=== PATIENT | female | born 1995 | race Caucasian/White ===

== ENCOUNTER 2024-08-15 07:22 | Inpatient (IN) ==
[2024-08-15] MEDS ORDERED: OXYTOCIN 30 UNITS/NSS 30 UNITS/500 ML BAG IV PRN (07:45)
[2024-08-15 08:08] LABS: Hematocrit (blood only) 38.5 % (37.0-47.0); Hemoglobin 13.3 g/dl (12.0-16.0); Mean Corpuscular Hemoglobin 30.7 pg (25.0-34.0); Mean Corpuscular Hgb Conc 34.5 g/dL (32.0-36.0); Mean Corpuscular Volume 88.9 fL (80.0-100.0); Mean Platelet Volume 10.8 fL (9.4-12.4); Platelet Count 205 K/uL (130-400); RDW Coefficient of Variation 12.2 % (11.5-14.5); RDW Standard Deviation 40.1 fL (36.4-46.3); Red Blood Count 4.33 M/uL (4.20-5.40); White Blood Count 11.49 K/ul (4.8-10.8)
--- NOTE | 2024-08-15 08:08 | History & Physical Report ---
Date of Service August 15, 2024 Assessment & Plan (1) Supervision of normal first : Plan: Currently Cat 1 monitoring Anesthesiology consulted for epidural per pt discretion Gao bulb placed, Pitocin started Will monitor FHT, toco, and BPs Anticipate Admission and Anticipated Discharge Date Admission Date: August 15, 2024 History of Present Illness Primary Care Provider: Denise Wick Misti Iyer is a 28 y/o female currently at 40WGA with an NEGRITO 08/13/24 as determined by Ultrasound who is here for induction for post dates. Her has not been complicated. no contractions; hourly movement; no fluid loss; no bloody show External FHT and external uterine monitors used. Had regular appointments with OB. OB Labs: Blood Type A Positive 12/29/23 Antibody Screen NEGATIVE 12/29/23 Hgb 11.7 g/dl (12.0-16.0) L 05/20/24 Hct 35.0 % (37.0-47.0) L 05/20/24 MCV 91.8 fL (80.0-100.0) 12/29/23 Plt Count 268 K/uL (130-400) 12/29/23 Rubella IgG Antibody Immune (Immune) 12/29/23 RPR Nonreactive (Nonreactive) 12/29/23 Treponema pallidum Ab Negative (Negative) 05/20/24 Hep Bs Antigen NON-REACTIVE (NON-REACTIVE) 12/29/23 Hepatitis C Ab (EIA) NON-REACTIVE (NON-REACTIVE) 12/29/23 HIV (1&2) Ag & Ab Conf NON-REACTIVE (NON-REACTIVE) 12/29/23 Glucose 1 Hr 50 gm 119 mg/dl (70-130) 05/20/24 OB Optional Labs: Chlamydia trachomatis RNA Not Detected (NotDetected) 12/29/23 Neisseria gonorrhoeae RNA Not Detected (NotDetected) 12/29/23 Labs Reviewed: Declines genetics--mln gbs neg--akh Denies fever, chills, sweats Denies shortness of breath, difficulty breathing, chest pain, palpitations, chest pressure. Denies breast pain. Denies dysuria. Denies headache or changes in vision. Allergies Allergy/AdvReac Type Severity Reaction Status Date / Time No Known Allergies Allergy Verified 08/12/24 09:13 Home Medications Medication Instructions Recorded Confirmed Type PNV 153-FA 400 mcg-om3 35 mg-dha tab PO 12/22/23 08/12/24 History 25 mg-epa 5 mg-fish oil chew tablet ( Gummies) magnesium 250 mg PO DAILY 12/22/23 08/15/24 History breast pump #1 ea 07/22/24 08/12/24 Rx Patient History Medical History Varicella vaccination Surgical History S/P wisdom tooth extraction Family History Grandmother (Paternal) Breast cancer Father Diabetes Alcoholic Mother Osteoporosis Denies family history of Ovarian cancer Colorectal cancer Uterine cancer Social History (Updated 08/15/24 @ 07:48 by Leida Pond RN) Smoking Status: Never smoker Do You Dip or Chew Tobacco: No; Hx Alcohol Use: No Hx Substance Use: No Preferred Language: Maltese Communication Ability: Effective Stain Dipper Required: No Beliefs That Will Affect Care: None marital status: marital status details: Frank Luis (28) [phone] Current Living Situation: Spouse Current Living Situation Comment: Spouse, Dogs and Cats- changes litter current occupational status: employed current occupation: Elementary Counselor Other Information That Helps Us Care for You: No Feels Safe at Home: Yes Safety Concerns: Feels Safe At This Time Diet: regular Assistive Devices: None Review of Systems As per HPI Physical Exam Physical Exam: General: Alert, oriented. No acute distress. Cardiac: Regular rate and rhythm, no murmurs/rubs/gallops. Respiratory: Clear to auscultation bilaterally a/p, no wheezes/rales/rhonchi. No increased work of breathing. Symmetrical chest rise. No respiratory distress. Pelvic: Dilation 1 cm; Effacement 50%; Station -[address] Sarabia Lower Extremities: No lower extremity edema or swelling. No deep calf pain. Maritza's negative bilaterally Results & Data Vital Signs (Past 12 Hours) Vital Signs Pulse BP 08/15/24 07:43 95 H 123/92 Code Status & VTE Plan VTE Prophylaxis Plan VTE Prophylaxis will be ordered: No Monitoring External Monitor Marked variability, noted accels, no decels Tocodynamometer No regular contractions noted Supervising Physician Co-Signing Physician Notes Resident Physician Supervision Note: I interviewed and examined the patient. Discussed with Dr. Benson and agree with findings and plan as documented in the note. Any exceptions or clarifications are listed here: Reviewed cervical ripening options - agreeable to gao bulb with pitocin. Documented By: Gini Sarabia, DO
[2024-08-15] MEDS: Patient's HEIGHT &/or WEIGHT Needed SCH (08:45)
[2024-08-15] MEDS: SODIUM CHLORIDE 0.9% 1,000 ML IV SCH (09:45)
[2024-08-15] MEDS: OXYTOCIN 30 UNITS/NSS 30 UNITS/500 ML BAG IV PRN (09:46)
--- NOTE | 2024-08-15 16:47 | Labor Progress Brief Note ---
Date of Service August 15, 2024 Subjective FHT Cat 1 [place] Q 2 /-2 Wants to wait to AROM until is back. Assessment & Plan Admission and Anticipated Discharge Date Admission Date: August 15, 2024 Results & Data Vital Signs (Past 12 Hours) Vital Signs Temp Pulse Resp BP 08/15/24 16:02 99 H 137/78 08/15/24 14:58 36.8 C 90 20 122/74 08/15/24 14:19 104 H 135/78 08/15/24 13:41 101 H 133/72 08/15/24 13:16 102 H 130/78 08/15/24 11:52 98 H 130/78 08/15/24 11:18 36.5 C 85 18 120/75 08/15/24 09:51 76 18 135/88 08/15/24 07:49 36.5 C 95 H 20 123/92 08/15/24 07:43 95 H 123/92 Coding Level of Care Code None
--- NOTE | 2024-08-15 21:22 | Anesthesiology Consultation ---
Date of Service August 15, 2024 Assessment & Plan Chart Review Chart Review: Patient NOT seen in Pre Admission Testing and Acceptable Risk for Labor Epidural Consults Requested none ASA ASA2 Proposed Anesthesia Anesthesia Type: Labor Epidural Risk / Benefits Reviewed With: PT / POA / Parent / Guardian, Accepts Plan and Informed Consent Obtained History Height/Weight Height: 5 ft 2 in Weight: 82.41 kg Allergies Allergy/AdvReac Type Severity Reaction Status Date / Time No Known Allergies Allergy Verified 08/12/24 09:13 Medications Home Medications Medication Instructions Recorded Confirmed Last Taken PNV 153-FA 400 mcg-om3 35 mg-dha tab PO 12/22/23 08/12/24 08/13/24 25 mg-epa 5 mg-fish oil chew tablet ( Gummies) magnesium 250 mg PO DAILY 12/22/23 08/15/24 08/13/24 breast pump #1 ea 07/22/24 08/12/24 Unknown Active Medications Generic Name Dose Route Start Last Admin Trade Name Freq PRN Reason Stop Dose Admin Oxytocin 30 units in 500 mls @ 13 mls/hr 08/15/24 07:45 08/15/24 20:50 Pitocin 30 Units/Nss IV 08/17/24 07:44 0.78 units/hr .Q24H PRN 13 mls/hr Labor Induction/Augmentation Titration Protocol 0.78 UNITS/HR Sodium Chloride 1,000 mls @ 80 mls/hr 08/15/24 08:45 08/15/24 21:05 Nss IV 08/16/24 08:44 80 mls/hr .[id number] [place] Administration NPO Date Last Intake of Fluids: 08/15/24 Time Last Intake of Fluids: 21:00 Date Last Intake of Solids: 08/15/24 Time Last Intake of Solids: 06:00 Past Medical History Medical History Varicella vaccination Exercise / Class Metabolic Activity 1 > 8 Run/Swim/Ski/Tennis Past Family History Family History Grandmother (Paternal) Breast cancer Father Diabetes Alcoholic Mother Osteoporosis Denies family history of Ovarian cancer Colorectal cancer Uterine cancer Past Surgical History Surgical History S/P wisdom tooth extraction Past Anesthesia History No Hx of Anesthesia Complications and No Family Hx of Anesthesia Complications History of PONV No Hx of PONV and No Hx of Motion Sickness Social History Smoking Status: Never smoker Do You Dip or Chew Tobacco: No Hx Alcohol Use: No Hx Substance Use: No Review of Systems ROS Unobtainable: All systems reviewed & are unremarkable except as noted in HPI & below Physical Exam Vital Signs Last Vital Signs Temp 36.5 C 08/15/24 19:00 Pulse 86 08/15/24 20:22 Resp 18 08/15/24 19:00 BP 128/83 08/15/24 20:22 Testing Laboratory Results 08/15/24 07:51
[2024-08-15] MEDS: LIDOCAINE 2%/EPINEPHRINE 1:200,000 20 ML PF ONE (21:42)
[2024-08-15] MEDS: fentaNYL citrate PF 100 MCG/2 ML VIAL ONE (21:42)
[2024-08-15] MEDS: BUPIVACAINE 0.25% PF 30 ML VIAL ONE (21:42)
[2024-08-15] MEDS: fentANYL 2 MCG/ML BUPIVacaine 0.125%-NSS 100ML BAG ONE (21:44)
[2024-08-15] MEDS ORDERED: diphenhydrAMINE 50 MG/ML VIAL IV PRN (21:50)
[2024-08-15] MEDS ORDERED: BUPIVACAINE 0.25% PF 30 ML VIAL EPI PRN (21:50)
[2024-08-15] MEDS ORDERED: NALOXONE HCL 1 MG in SODIUM CHLORIDE 0.9% 1,000 ML IV PRN (21:50)
[2024-08-15] MEDS ORDERED: SODIUM CHLORIDE 0.9% PF INJ 10 ML VIAL EPI PRN (21:50)
[2024-08-15] MEDS ORDERED: ePHEDrine sulfate 50 MG/ML AMP IV PRN (21:50)
[2024-08-15] MEDS ORDERED: NALBUPHINE HCL INJ 10 MG/ML AMP IV PRN (21:50)
[2024-08-15] MEDS ORDERED: LIDOCAINE 2% MPF LOCAL 5 ML VIAL EPI PRN (21:50)
[2024-08-15] MEDS ORDERED: fentaNYL citrate PF 100 MCG/2 ML VIAL EPI PRN (21:50)
[2024-08-15] MEDS ORDERED: NALOXONE HCL 0.4 MG/1 ML VIAL/CARP IV PRN (21:50)
[2024-08-15] MEDS ORDERED: ROPIVACAINE 0.5% PF 5 MG/ML 20 ML VIAL EPI PRN (21:50)
[2024-08-15] MEDS: ePHEDrine sulfate 50 MG/ML AMP ONE (22:23)
[2024-08-16] MEDS: SODIUM CHLORIDE 0.9% PF INJ 10 ML VIAL ONE (00:53)
[2024-08-16] MEDS: fentANYL 2 MCG/ML BUPIVacaine 0.125%-NSS 100ML BAG EPI PRN (05:47)
--- NOTE | 2024-08-16 09:06 | Labor Progress Brief Note ---
Date of Service August 16, 2024 Subjective no pain, very comfortable and does not feel pressure Assessment & Plan (1) Normal labor: Plan will begin 2nd stage. fhts categ 1. Admission and Anticipated Discharge Date Admission Date: August 15, 2024 Physical Exam Constitutional: WD/WN, vitals as above Genitourinary: Manual OB Exam: + cervical dilation 10 cm, + cervical effacement 100% and + station + 2 OB Exam Monitor Tracing: + external FHT monitor used, + external uterine monitor used, + category I and + normal FHT variability Results & Data Vital Signs (Past 12 Hours) Vital Signs Temp Pulse Resp BP Pulse Ox 08/16/24 08:57 106 H 98 08/16/24 08:52 99 08/16/24 08:52 124 H 08/16/24 08:52 109 H 108/58 L 08/16/24 08:47 94 H 97 08/16/24 08:42 95 H 97 08/16/24 08:37 95 H 103/55 L 96 08/16/24 08:32 95 H 97 08/16/24 08:27 98 H 97 08/16/24 08:22 96 H 97 08/16/24 08:21 95 H 111/57 L 08/16/24 08:17 98 H 97 08/16/24 08:12 100 H 97 08/16/24 08:08 105 H 135/56 L 08/16/24 08:07 103 H 97 08/16/24 08:06 106 H 92 08/16/24 08:02 108 H 97 08/16/24 07:57 110 H 18 98 08/16/24 07:52 111 H 99 08/16/24 07:51 105 H 125/73 08/16/24 07:47 114 H 98 08/16/24 07:42 101 H 97 08/16/24 07:37 103 H 118/73 97 08/16/24 07:32 102 H 97 08/16/24 07:27 103 H 98 08/16/24 07:23 109 H 119/74 08/16/24 07:22 107 H 97 08/16/24 07:17 102 H 97 08/16/24 07:12 106 H 98 08/16/24 07:08 98.6 F 122 H 20 127/77 08/16/24 07:07 117 H 98 08/16/24 07:02 107 H 99 08/16/24 06:57 107 H 100 08/16/24 06:52 99 08/16/24 06:52 127 H 08/16/24 06:52 118 H 132/74 08/16/24 06:47 128 H 100 08/16/24 06:42 110 H 99 08/16/24 06:37 119 H 120/67 99 08/16/24 06:32 104 H 99 08/16/24 06:27 115 H 100 08/16/24 06:22 118 H 98 08/16/24 06:21 103 H 131/73 08/16/24 06:17 16 08/16/24 06:17 98.1 F 108 H 16 100 08/16/24 06:12 107 H 100 08/16/24 06:07 113 H 124/70 99 08/16/24 06:02 121 H 99 08/16/24 05:57 83 97 08/16/24 05:52 86 98 08/16/24 05:51 88 124/66 08/16/24 05:47 100 H 99 08/16/24 05:42 95 H 98 08/16/24 05:37 96 08/16/24 05:37 86 08/16/24 05:37 83 101/55 L 08/16/24 05:32 90 97 08/16/24 05:27 86 97 08/16/24 05:22 83 97 08/16/24 05:21 96 H 113/68 08/16/24 05:17 83 98 08/16/24 05:12 90 99 08/16/24 05:09 103 H 122/63 08/16/24 05:07 116 H 98 08/16/24 05:02 85 98 08/16/24 04:57 86 98 08/16/24 04:52 98.2 F 90 16 115/54 L 100 08/16/24 04:47 86 97 08/16/24 04:42 92 H 97 08/16/24 04:37 93 H 106/57 L 98 08/16/24 04:32 86 98 08/16/24 04:27 90 97 08/16/24 04:22 108 H 99 08/16/24 04:21 93 H 94/51 L 08/16/24 04:17 90 97 08/16/24 04:12 91 H 98 08/16/24 04:07 87 98 08/16/24 04:06 88 100/55 L 08/16/24 04:02 90 99 08/16/24 03:57 102 H 100 08/16/24 03:52 99 H 98 08/16/24 03:51 102 H 111/60 08/16/24 03:47 100 H 97 08/16/24 03:42 104 H 98 08/16/24 03:37 103 H 98 08/16/24 03:36 105 H 119/61 08/16/24 03:32 113 H 99 08/16/24 03:27 115 H 97 08/16/24 03:22 126 H 118/70 98 08/16/24 03:17 128 H 98 08/16/24 03:12 122 H 98 08/16/24 03:07 129 H 98 08/16/24 03:06 116 H 118/69 08/16/24 03:02 119 H 97 08/16/24 02:57 127 H 97 08/16/24 02:52 126 H 96 08/16/24 02:51 127 H 119/67 08/16/24 02:50 16 08/16/24 02:50 98.4 F 16 08/16/24 02:47 122 H 96 08/16/24 02:42 131 H 97 08/16/24 02:37 96 08/16/24 02:37 125 H 08/16/24 02:37 125 H 116/66 08/16/24 02:32 131 H 97 08/16/24 02:27 121 H 96 08/16/24 02:22 126 H 123/69 97 08/16/24 02:17 121 H 96 08/16/24 02:12 124 H 96 08/16/24 02:07 114 H 113/62 95 08/16/24 02:04 113 H 94 08/16/24 02:02 110 H 95 08/16/24 01:57 107 H 95 08/16/24 01:56 107 H 94 08/16/24 01:52 105 H 95 08/16/24 01:51 110 H 16 106/57 L 08/16/24 01:50 106 H 94 08/16/24 01:47 107 H 95 08/16/24 01:42 108 H 95 08/16/24 01:41 106 H 94 08/16/24 01:37 107 H 114/62 95 08/16/24 01:32 109 H 95 08/16/24 01:27 115 H 96 08/16/24 01:22 95 08/16/24 01:22 107 H 08/16/24 01:22 106 H 109/64 08/16/24 01:17 102 H 96 08/16/24 01:12 98 H 96 08/16/24 01:07 98 H 97 08/16/24 01:06 100 H 117/71 08/16/24 01:02 100 H 97 08/16/24 00:57 107 H 97 08/16/24 00:52 121 H 98 08/16/24 00:51 109 H 94 08/16/24 00:50 16 08/16/24 00:50 98.1 F 16 08/16/24 00:47 95 H 97 08/16/24 00:42 84 96 08/16/24 00:37 100 H 97 08/16/24 00:36 83 102/58 L 08/16/24 00:32 108 H 97 08/16/24 00:27 88 94 08/16/24 00:26 87 94 08/16/24 00:22 95 08/16/24 00:22 87 08/16/24 00:22 86 97/55 L 08/16/24 00:20 85 94 08/16/24 00:17 85 95 08/16/24 00:15 87 94 08/16/24 00:12 87 95 08/16/24 00:10 88 94 08/16/24 00:08 89 16 101/55 L 08/16/24 00:07 89 95 08/16/24 00:04 86 94 08/16/24 00:02 83 94 08/15/24 23:59 85 94 08/15/24 23:57 85 96 08/15/24 23:53 84 94 08/15/24 23:52 95 08/15/24 23:52 84 08/15/24 23:52 85 98/56 L 08/15/24 23:48 86 94 08/15/24 23:47 84 94 08/15/24 23:43 86 93 08/15/24 23:42 84 95 08/15/24 23:37 84 96 08/15/24 23:36 88 97/52 L 08/15/24 23:32 83 95 08/15/24 23:27 88 95 08/15/24 23:26 84 94 08/15/24 23:22 87 97 08/15/24 23:21 92 H 96/54 L 08/15/24 23:17 80 96 08/15/24 23:16 81 94 08/15/24 23:12 83 95 08/15/24 23:07 80 95 08/15/24 23:06 85 95/52 L 08/15/24 23:02 81 96 08/15/24 22:57 78 97 08/15/24 22:52 79 97 08/15/24 22:51 86 16 97/53 L 08/15/24 22:47 81 97 08/15/24 22:42 82 96 08/15/24 22:37 82 97 08/15/24 22:36 84 100/54 L 08/15/24 22:33 83 97/52 L 08/15/24 22:32 90 97 08/15/24 22:30 81 96/55 L 08/15/24 22:27 81 98/55 L 99 08/15/24 22:25 86 100/56 L 08/15/24 22:22 87 98 08/15/24 22:21 87 86/50 L 08/15/24 22:20 75 82/49 L 08/15/24 22:17 96 08/15/24 22:17 89 08/15/24 22:17 79 82/47 L 08/15/24 22:13 16 08/15/24 22:13 16 08/15/24 22:12 93 H 98 08/15/24 22:09 91 H 97/45 L 08/15/24 22:07 91 H 98 08/15/24 22:02 90 98 08/15/24 22:01 91 H 101/50 L 08/15/24 21:59 104 H 183/122 H 08/15/24 21:57 111 H 98 08/15/24 21:56 96 H 112/65 08/15/24 21:53 85 97/54 L 08/15/24 21:52 84 91/53 L 97 08/15/24 21:51 78 90/51 L 08/15/24 21:50 100 H 96/50 L 08/15/24 21:47 98 08/15/24 21:47 107 H 08/15/24 21:47 117 H 18 119/58 L 08/15/24 21:44 122 H 107/68 08/15/24 21:43 115 H 131/73 08/15/24 21:42 112 H 97 08/15/24 21:38 101 H 137/75 08/15/24 21:37 103 H 98 08/15/24 21:35 100 H 147/82 H 08/15/24 21:32 103 H 98 08/15/24 21:27 110 H 97 08/15/24 21:22 102 H 98 Coding Level of Care Code None Diagnoses Normal labor O80; Z37.9
--- NOTE | 2024-08-16 10:30 | Labor Progress Brief Note ---
Date of Service August 16, 2024 Subjective feeling exhausted. asked to evaluate by nurse Assessment & Plan (1) Normal labor: Plan at first pt requested assistance due to exhaustion. explained used of vacuum risk/benefit, risk of cephalohematoma. failure of attempted assistance. she now declines intervention and wants to cont to push on her own. she is pushing effectively and so encouraged to continue. fhts categ 1. Admission and Anticipated Discharge Date Admission Date: August 15, 2024 Physical Exam 2 Constitutional: WD/WN, vitals as above Genitourinary: Manual OB Exam: + cervical dilation 10 cm, + cervical effacemen t 100% and + station + 3 OB Exam Monitor Tracing: + external FHT monitor used, + external uterine monitor used (q3 pit at 20), + category I and + normal FHT variability pushing effectively. Results & Data Vital Signs (Past 12 Hours) Vital Signs Temp Pulse Resp BP Pulse Ox 08/16/24 10:23 120 H 128/71 08/16/24 10:22 123 H 97 08/16/24 10:17 153 H 98 08/16/24 10:13 101 H 94 08/16/24 10:12 113 H 97 08/16/24 10:08 101 H 94 08/16/24 10:07 95 08/16/24 10:07 100 H 08/16/24 10:07 103 H 116/55 L 08/16/24 10:02 110 H 96 08/16/24 09:57 130 H 97 08/16/24 09:52 106 H 117/71 96 08/16/24 09:47 109 H 96 08/16/24 09:42 115 H 97 08/16/24 09:37 128 H 97 08/16/24 09:36 109 H 128/66 08/16/24 09:32 104 H 96 08/16/24 09:27 121 H 98 08/16/24 09:22 127 H 81 L 08/16/24 09:21 99 H 123/60 08/16/24 09:17 144 H 99 08/16/24 09:12 110 H 96 08/16/24 09:07 125 H 99 08/16/24 09:06 118 H 137/69 08/16/24 09:02 97.9 F 117 H 20 99 08/16/24 08:57 106 H 98 08/16/24 08:52 99 08/16/24 08:52 124 H 08/16/24 08:52 109 H 108/58 L 08/16/24 08:47 94 H 97 08/16/24 08:42 95 H 97 08/16/24 08:37 95 H 103/55 L 96 08/16/24 08:32 95 H 97 08/16/24 08:27 98 H 97 08/16/24 08:22 96 H 97 08/16/24 08:21 95 H 111/57 L 08/16/24 08:17 98 H 97 08/16/24 08:12 100 H 97 08/16/24 08:08 105 H 135/56 L 08/16/24 08:07 103 H 97 08/16/24 08:06 106 H 92 08/16/24 08:02 108 H 97 08/16/24 07:57 110 H 18 98 08/16/24 07:52 111 H 99 08/16/24 07:51 105 H 125/73 08/16/24 07:47 114 H 98 08/16/24 07:42 101 H 97 08/16/24 07:37 103 H 118/73 97 08/16/24 07:32 102 H 97 08/16/24 07:27 103 H 98 08/16/24 07:23 109 H 119/74 08/16/24 07:22 107 H 97 08/16/24 07:17 102 H 97 08/16/24 07:12 106 H 98 08/16/24 07:08 98.6 F 122 H 20 127/77 08/16/24 07:07 117 H 98 08/16/24 07:02 107 H 99 08/16/24 06:57 107 H 100 08/16/24 06:52 99 08/16/24 06:52 127 H 08/16/24 06:52 118 H 132/74 08/16/24 06:47 128 H 100 08/16/24 06:42 110 H 99 08/16/24 06:37 119 H 120/67 99 08/16/24 06:32 104 H 99 08/16/24 06:27 115 H 100 08/16/24 06:22 118 H 98 08/16/24 06:21 103 H 131/73 08/16/24 06:17 16 08/16/24 06:17 98.1 F 108 H 16 100 08/16/24 06:12 107 H 100 08/16/24 06:07 113 H 124/70 99 08/16/24 06:02 121 H 99 08/16/24 05:57 83 97 08/16/24 05:52 86 98 08/16/24 05:51 88 124/66 08/16/24 05:47 100 H 99 08/16/24 05:42 95 H 98 08/16/24 05:37 96 08/16/24 05:37 86 08/16/24 05:37 83 101/55 L 08/16/24 05:32 90 97 08/16/24 05:27 86 97 08/16/24 05:22 83 97 08/16/24 05:21 96 H 113/68 08/16/24 05:17 83 98 08/16/24 05:12 90 99 08/16/24 05:09 103 H 122/63 08/16/24 05:07 116 H 98 08/16/24 05:02 85 98 08/16/24 04:57 86 98 08/16/24 04:52 98.2 F 90 16 115/54 L 100 08/16/24 04:47 86 97 08/16/24 04:42 92 H 97 08/16/24 04:37 93 H 106/57 L 98 08/16/24 04:32 86 98 08/16/24 04:27 90 97 08/16/24 04:22 108 H 99 08/16/24 04:21 93 H 94/51 L 08/16/24 04:17 90 97 08/16/24 04:12 91 H 98 08/16/24 04:07 87 98 08/16/24 04:06 88 100/55 L 08/16/24 04:02 90 99 08/16/24 03:57 102 H 100 08/16/24 03:52 99 H 98 08/16/24 03:51 102 H 111/60 08/16/24 03:47 100 H 97 08/16/24 03:42 104 H 98 08/16/24 03:37 103 H 98 08/16/24 03:36 105 H 119/61 08/16/24 03:32 113 H 99 08/16/24 03:27 115 H 97 08/16/24 03:22 126 H 118/70 98 08/16/24 03:17 128 H 98 08/16/24 03:12 122 H 98 08/16/24 03:07 129 H 98 08/16/24 03:06 116 H 118/69 08/16/24 03:02 119 H 97 08/16/24 02:57 127 H 97 08/16/24 02:52 126 H 96 08/16/24 02:51 127 H 119/67 08/16/24 02:50 16 08/16/24 02:50 98.4 F 16 08/16/24 02:47 122 H 96 08/16/24 02:42 131 H 97 08/16/24 02:37 96 08/16/24 02:37 125 H 08/16/24 02:37 125 H 116/66 08/16/24 02:32 131 H 97 08/16/24 02:27 121 H 96 08/16/24 02:22 126 H 123/69 97 08/16/24 02:17 121 H 96 08/16/24 02:12 124 H 96 08/16/24 02:07 114 H 113/62 95 08/16/24 02:04 113 H 94 08/16/24 02:02 110 H 95 08/16/24 01:57 107 H 95 08/16/24 01:56 107 H 94 08/16/24 01:52 105 H 95 08/16/24 01:51 110 H 16 106/57 L 08/16/24 01:50 106 H 94 08/16/24 01:47 107 H 95 08/16/24 01:42 108 H 95 08/16/24 01:41 106 H 94 08/16/24 01:37 107 H 114/62 95 08/16/24 01:32 109 H 95 08/16/24 01:27 115 H 96 08/16/24 01:22 95 08/16/24 01:22 107 H 08/16/24 01:22 106 H 109/64 08/16/24 01:17 102 H 96 08/16/24 01:12 98 H 96 08/16/24 01:07 98 H 97 08/16/24 01:06 100 H 117/71 08/16/24 01:02 100 H 97 08/16/24 00:57 107 H 97 08/16/24 00:52 121 H 98 08/16/24 00:51 109 H 94 08/16/24 00:50 16 08/16/24 00:50 98.1 F 16 08/16/24 00:47 95 H 97 08/16/24 00:42 84 96 08/16/24 00:37 100 H 97 08/16/24 00:36 83 102/58 L 08/16/24 00:32 108 H 97 08/16/24 00:27 88 94 08/16/24 00:26 87 94 08/16/24 00:22 95 08/16/24 00:22 87 08/16/24 00:22 86 97/55 L 08/16/24 00:20 85 94 08/16/24 00:17 85 95 08/16/24 00:15 87 94 08/16/24 00:12 87 95 08/16/24 00:10 88 94 08/16/24 00:08 89 16 101/55 L 08/16/24 00:07 89 95 08/16/24 00:04 86 94 08/16/24 00:02 83 94 08/15/24 23:59 85 94 08/15/24 23:57 85 96 08/15/24 23:53 84 94 08/15/24 23:52 95 08/15/24 23:52 84 08/15/24 23:52 85 98/56 L 08/15/24 23:48 86 94 08/15/24 23:47 84 94 08/15/24 23:43 86 93 08/15/24 23:42 84 95 08/15/24 23:37 84 96 08/15/24 23:36 88 97/52 L 08/15/24 23:32 83 95 08/15/24 23:27 88 95 08/15/24 23:26 84 94 08/15/24 23:22 87 97 08/15/24 23:21 92 H 96/54 L 08/15/24 23:17 80 96 08/15/24 23:16 81 94 08/15/24 23:12 83 95 08/15/24 23:07 80 95 08/15/24 23:06 85 95/52 L 08/15/24 23:02 81 96 08/15/24 22:57 78 97 08/15/24 22:52 79 97 08/15/24 22:51 86 16 97/53 L 08/15/24 22:47 81 97 08/15/24 22:42 82 96 08/15/24 22:37 82 97 08/15/24 22:36 84 100/54 L 08/15/24 22:33 83 97/52 L 08/15/24 22:32 90 97 08/15/24 22:30 81 96/55 L Coding Level of Care Code None Diagnoses Normal labor O80; Z37.9
--- NOTE | 2024-08-16 11:17 | Labor Progress Brief Note ---
Date of Service August 16, 2024 Subjective pushing effectively. Assessment & Plan (1) Normal labor: Plan as i am typing this. nurse lets me know pt exhausted and requesting assistance. fhts categ 1. Admission and Anticipated Discharge Date Admission Date: August 15, 2024 Physical Exam Constitutional: WD/WN, vitals as above Genitourinary: Manual OB Exam: + cervical dilation 10 cm, + cervical effacement 100% and + station + 3 OB Exam Monitor Tracing: + external FHT monitor used (+scalp stim response), + external uterine monitor used, + category I and + normal FHT variability Results & Data Vital Signs (Past 12 Hours) Vital Signs Temp Pulse Resp BP Pulse Ox 08/16/24 11:14 107 H 92 08/16/24 11:12 154 H 97 08/16/24 11:09 107 H 94 08/16/24 11:07 160 H 99 08/16/24 11:05 22 08/16/24 11:05 97.9 F 22 08/16/24 11:02 105 H 96 08/16/24 10:57 122 H 96 08/16/24 10:52 111 H 96 08/16/24 10:47 96 H 95 08/16/24 10:45 115 H 91 08/16/24 10:42 111 H 97 08/16/24 10:37 108 H 97 08/16/24 10:32 99 08/16/24 10:32 163 H 08/16/24 10:32 108 H 93 08/16/24 10:27 113 H 97 08/16/24 10:23 120 H 128/71 08/16/24 10:22 123 H 97 08/16/24 10:17 153 H 98 08/16/24 10:13 101 H 94 08/16/24 10:12 113 H 97 08/16/24 10:08 101 H 94 08/16/24 10:07 95 08/16/24 10:07 100 H 08/16/24 10:07 103 H 116/55 L 08/16/24 10:02 110 H 96 08/16/24 09:57 130 H 97 08/16/24 09:52 106 H 117/71 96 08/16/24 09:47 109 H 96 08/16/24 09:42 115 H 97 08/16/24 09:37 128 H 97 08/16/24 09:36 109 H 128/66 08/16/24 09:32 104 H 96 08/16/24 09:27 121 H 98 08/16/24 09:22 127 H 81 L 08/16/24 09:21 99 H 123/60 08/16/24 09:17 144 H 99 08/16/24 09:12 110 H 96 08/16/24 09:07 125 H 99 08/16/24 09:06 118 H 137/69 08/16/24 09:02 97.9 F 117 H 20 99 08/16/24 08:57 106 H 98 08/16/24 08:52 99 08/16/24 08:52 124 H 08/16/24 08:52 109 H 108/58 L 08/16/24 08:47 94 H 97 08/16/24 08:42 95 H 97 08/16/24 08:37 95 H 103/55 L 96 08/16/24 08:32 95 H 97 08/16/24 08:27 98 H 97 08/16/24 08:22 96 H 97 08/16/24 08:21 95 H 111/57 L 08/16/24 08:17 98 H 97 08/16/24 08:12 100 H 97 08/16/24 08:08 105 H 135/56 L 08/16/24 08:07 103 H 97 08/16/24 08:06 106 H 92 08/16/24 08:02 108 H 97 08/16/24 07:57 110 H 18 98 08/16/24 07:52 111 H 99 08/16/24 07:51 105 H 125/73 08/16/24 07:47 114 H 98 08/16/24 07:42 101 H 97 08/16/24 07:37 103 H 118/73 97 08/16/24 07:32 102 H 97 08/16/24 07:27 103 H 98 08/16/24 07:23 109 H 119/74 08/16/24 07:22 107 H 97 08/16/24 07:17 102 H 97 08/16/24 07:12 106 H 98 08/16/24 07:08 98.6 F 122 H 20 127/77 08/16/24 07:07 117 H 98 08/16/24 07:02 107 H 99 08/16/24 06:57 107 H 100 08/16/24 06:52 99 08/16/24 06:52 127 H 08/16/24 06:52 118 H 132/74 08/16/24 06:47 128 H 100 08/16/24 06:42 110 H 99 08/16/24 06:37 119 H 120/67 99 08/16/24 06:32 104 H 99 08/16/24 06:27 115 H 100 08/16/24 06:22 118 H 98 08/16/24 06:21 103 H 131/73 08/16/24 06:17 16 08/16/24 06:17 98.1 F 108 H 16 100 08/16/24 06:12 107 H 100 08/16/24 06:07 113 H 124/70 99 08/16/24 06:02 121 H 99 08/16/24 05:57 83 97 08/16/24 05:52 86 98 08/16/24 05:51 88 124/66 08/16/24 05:47 100 H 99 08/16/24 05:42 95 H 98 08/16/24 05:37 96 08/16/24 05:37 86 08/16/24 05:37 83 101/55 L 08/16/24 05:32 90 97 08/16/24 05:27 86 97 08/16/24 05:22 83 97 08/16/24 05:21 96 H 113/68 08/16/24 05:17 83 98 08/16/24 05:12 90 99 08/16/24 05:09 103 H 122/63 08/16/24 05:07 116 H 98 08/16/24 05:02 85 98 08/16/24 04:57 86 98 08/16/24 04:52 98.2 F 90 16 115/54 L 100 08/16/24 04:47 86 97 08/16/24 04:42 92 H 97 08/16/24 04:37 93 H 106/57 L 98 08/16/24 04:32 86 98 08/16/24 04:27 90 97 08/16/24 04:22 108 H 99 08/16/24 04:21 93 H 94/51 L 08/16/24 04:17 90 97 08/16/24 04:12 91 H 98 08/16/24 04:07 87 98 08/16/24 04:06 88 100/55 L 08/16/24 04:02 90 99 08/16/24 03:57 102 H 100 08/16/24 03:52 99 H 98 08/16/24 03:51 102 H 111/60 08/16/24 03:47 100 H 97 08/16/24 03:42 104 H 98 08/16/24 03:37 103 H 98 08/16/24 03:36 105 H 119/61 08/16/24 03:32 113 H 99 08/16/24 03:27 115 H 97 08/16/24 03:22 126 H 118/70 98 08/16/24 03:17 128 H 98 08/16/24 03:12 122 H 98 08/16/24 03:07 129 H 98 08/16/24 03:06 116 H 118/69 08/16/24 03:02 119 H 97 08/16/24 02:57 127 H 97 08/16/24 02:52 126 H 96 08/16/24 02:51 127 H 119/67 08/16/24 02:50 16 08/16/24 02:50 98.4 F 16 08/16/24 02:47 122 H 96 08/16/24 02:42 131 H 97 08/16/24 02:37 96 08/16/24 02:37 125 H 08/16/24 02:37 125 H 116/66 08/16/24 02:32 131 H 97 08/16/24 02:27 121 H 96 08/16/24 02:22 126 H 123/69 97 08/16/24 02:17 121 H 96 08/16/24 02:12 124 H 96 08/16/24 02:07 114 H 113/62 95 08/16/24 02:04 113 H 94 08/16/24 02:02 110 H 95 08/16/24 01:57 107 H 95 08/16/24 01:56 107 H 94 08/16/24 01:52 105 H 95 08/16/24 01:51 110 H 16 106/57 L 08/16/24 01:50 106 H 94 08/16/24 01:47 107 H 95 08/16/24 01:42 108 H 95 08/16/24 01:41 106 H 94 08/16/24 01:37 107 H 114/62 95 08/16/24 01:32 109 H 95 08/16/24 01:27 115 H 96 08/16/24 01:22 95 08/16/24 01:22 107 H 08/16/24 01:22 106 H 109/64 08/16/24 01:17 102 H 96 08/16/24 01:12 98 H 96 08/16/24 01:07 98 H 97 08/16/24 01:06 100 H 117/71 08/16/24 01:02 100 H 97 08/16/24 00:57 107 H 97 08/16/24 00:52 121 H 98 08/16/24 00:51 109 H 94 08/16/24 00:50 16 08/16/24 00:50 98.1 F 16 08/16/24 00:47 95 H 97 08/16/24 00:42 84 96 08/16/24 00:37 100 H 97 08/16/24 00:36 83 102/58 L 08/16/24 00:32 108 H 97 08/16/24 00:27 88 94 08/16/24 00:26 87 94 08/16/24 00:22 95 08/16/24 00:22 87 08/16/24 00:22 86 97/55 L 08/16/24 00:20 85 94 08/16/24 00:17 85 95 08/16/24 00:15 87 94 08/16/24 00:12 87 95 08/16/24 00:10 88 94 08/16/24 00:08 89 16 101/55 L 08/16/24 00:07 89 95 08/16/24 00:04 86 94 08/16/24 00:02 83 94 08/15/24 23:59 85 94 08/15/24 23:57 85 96 08/15/24 23:53 84 94 08/15/24 23:52 95 08/15/24 23:52 84 08/15/24 23:52 85 98/56 L 08/15/24 23:48 86 94 08/15/24 23:47 84 94 08/15/24 23:43 86 93 08/15/24 23:42 84 95 08/15/24 23:37 84 96 08/15/24 23:36 88 97/52 L 08/15/24 23:32 83 95 08/15/24 23:27 88 95 08/15/24 23:26 84 94 08/15/24 23:22 87 97 08/15/24 23:21 92 H 96/54 L 08/15/24 23:17 80 96 Coding Level of Care Code None Diagnoses Normal labor O80; Z37.9
[2024-08-16] MEDS: LIDOCAINE 1% LOCAL 20 ML VIAL INFIL PRN (11:39)
[2024-08-16] MEDS ORDERED: HYDROCORTISONE ACETATE 25 MG SUPP PR PRN (11:58)
[2024-08-16] MEDS ORDERED: OXYTOCIN 30 UNITS/NSS 30 UNITS/500 ML BAG IV PRN (11:58)
[2024-08-16] MEDS ORDERED: DIPHTHER/TETAN/PERTUS Vaccine (Tdap, Adol/Adult) 0.5mL IM ONE (11:58)
[2024-08-16] MEDS ORDERED: bisacodyL 10 MG SUPP PR PRN (11:58)
[2024-08-16] MEDS: LIDOCAINE 2%/EPINEPHRINE 1:200,000 20 ML PF EPI STA (12:37)
[2024-08-16] MEDS: fentaNYL citrate PF 100 MCG/2 ML VIAL EPI STA (12:37)
[2024-08-16] MEDS: BUPIVACAINE 0.25% PF 30 ML VIAL EPI STA (12:37)
[2024-08-16] MEDS: SODIUM CHLORIDE 0.9% PF INJ 10 ML VIAL EPI STA (12:38)
[2024-08-16] MEDS: ceFAZolin 2000MG 2,000 MG/15 ML SYR IV SCH (12:45)
--- NOTE | 2024-08-16 12:55 | Delivery Summary ---
Vaginal Delivery Summary Date of Service August 16, 2024 Vaginal Delivery Summary and 3rd Degree LAC (partial) The patient was pushing >2hrs and asked for assistance due to maternal exhaustion. Had previously been counseled re: vacuum assistance and now wanted to proceed. Bladder drained under sterile conditions for 150cc. The vacuum was applied and over 3 pulls with 2 popoffs cephalic to +4 station. Then midline episiotomy performed after informed consent and pt pushed to deliver a viable male Apgars 8 and 9 via VAVD over partial 3rd degree perineal laceration extended from midline episiotomy. Mouth and nose bulb suctioned at perineum. Shoulders and body delivered with ease. was vigorous and crying at . Cord clamped at 30 seconds of life and infant to maternal abdomen where the cord was then doubly clamped and cut. Placenta not delivered spontaneously and at 15min postdelivery due to hemorrhage, manual extraction of placenta took place. Uterus swept for no retained products. Laceration repaired in layers in routine fashion with 2-0 and 3-0 vicryl. Hemostasis achieved with dilute pitocin and uterine massage and rectal cytotec 1000mcg. Cervix and sulci intact. QBL 1171 cc. Mother and baby stable in recovery. Couple made aware of circumstances after to include pph, iv abx planned due to manual extraction and sweeping of uterus. They deny questions. [facility] Vaginal Delivery Charge Delivery Type Details: and 3rd Degree LAC (partial)
[2024-08-16] MEDS ORDERED: SODIUM CHLORIDE 0.9% 50 ML IV PRN (13:18)
[2024-08-16] MEDS ORDERED: SODIUM CHLORIDE 0.9% 100 ML IV PRN (13:18)
[2024-08-16] MEDS ORDERED: MIDAZOLAM HCL 1 MG/ML 2ML VIAL ONE (13:25)
[2024-08-16] MEDS ORDERED: fentaNYL citrate PF 100 MCG/2 ML VIAL ONE (13:25)
[2024-08-16] MEDS ORDERED: PROPOFOL IV EMULSION 10 MG/ML 20 ML VIAL IV ONE (13:26)
[2024-08-16] MEDS ORDERED: LIDOCAINE 2% 2 ML VIAL/AMP(20MG/ML) INFIL ONE (13:26)
[2024-08-16] MEDS ORDERED: ONDANSETRON INJ 2 MG/ML 2 ML VIAL ONE (13:26)
[2024-08-16] MEDS ORDERED: DEXAMETHASONE SOD INJ 4 MG/ML VIAL ONE (13:26)
[2024-08-16] MEDS ORDERED: SUCCINYLCHOLINE CHLORIDE 20 MG/ML 10 ML VIAL IV ONE (13:26)
--- NOTE | 2024-08-16 13:27 | Anesthesiology Consultation ---
Date of Service August 16, 2024 Assessment & Plan Chart Review Chart Review: Acceptable Risk for Surgery Consults Requested none History Height/Weight Height: 5 ft 2 in Weight: 82.41 kg Allergies Allergy/AdvReac Type Severity Reaction Status Date / Time No Known Allergies Allergy Verified 08/12/24 09:13 Medications Home Medications Medication Instructions Recorded Confirmed Last Taken PNV 153-FA 400 mcg-om3 35 mg-dha tab PO 12/22/23 08/12/24 08/13/24 25 mg-epa 5 mg-fish oil chew tablet ( Gummies) magnesium 250 mg PO DAILY 12/22/23 08/15/24 08/13/24 breast pump #1 ea 07/22/24 08/12/24 Unknown Active Medications Generic Name Dose Route Start Last Admin Trade Name Freq PRN Reason Stop Dose Admin Cefazolin Sodium 2,000 mg in 15 mls @ 3.75 mls/min 08/16/24 12:00 08/16/24 12:45 Ancef 2000mg IV 08/18/24 11:59 3.75 mls/min Q8H [place] Administration Lidocaine HCl 20 ml 08/15/24 07:45 08/16/24 11:39 Lidocaine 1% Local 20 Ml Vial INFIL 09/14/24 07:44 1 ml ONCE PRN Administration Perineal/vaginal Repair NPO Date Last Intake of Fluids: 08/15/24 Time Last Intake of Fluids: 21:00 Date Last Intake of Solids: 08/15/24 Time Last Intake of Solids: 06:00 Past Medical History Medical History Varicella vaccination Past Family History Family History Grandmother (Paternal) Breast cancer Father Diabetes Alcoholic Mother Osteoporosis Denies family history of Ovarian cancer Colorectal cancer Uterine cancer Past Surgical History Surgical History S/P wisdom tooth extraction Social History Smoking Status: Never smoker Do You Dip or Chew Tobacco: No Hx Alcohol Use: No Hx Substance Use: No Physical Exam Vital Signs Last Vital Signs Temp 36.6 C 08/16/24 11:05 Pulse 142 H 08/16/24 13:24 Resp 22 08/16/24 11:05 BP 143/75 H 08/16/24 13:24 Pulse Ox 98 08/16/24 11:52 Testing Laboratory Results 08/15/24 07:51
--- NOTE | 2024-08-16 13:31 | Obstetrical Progress Note ---
Date of Service August 16, 2024 Assessment & Plan (1) hemorrhage: Plan will now plan emergency d&c. plan eua and curettage and likely further med and device mgmt. pt aware of risk for surgery and hyster. consent reviewed and signed. now about at least 2000cc blood loss from this event and at delivery combined. Admission and Anticipated Discharge Date Admission Date: August 15, 2024 Subjective ctsp due to large gush of blood and clots. nursing states uterus deviated to right and about at umbilicus. pt just was . Physical Exam Constitutional: WD/WN, vitals as above Genitourinary: bedside exam with uterus deviated to right and 1 above umbilical. whole hand into uterine cavity with removal of many clots. measures >950cc. uterus swept x 2 and on 2nd attempt, small piece of adherent placenta removed. uterus not as boggy but concern for need for better exploration. massive transfusion protocol called. stat h/h. type and cross 2 u prbc. Results & Data Vital Signs (Past 12 Hours) Vital Signs Temp Pulse Resp BP Pulse Ox 08/16/24 13:24 142 H 143/75 H 08/16/24 13:21 111 H 148/77 H 08/16/24 13:04 129 H 123/70 08/16/24 12:49 120 H 129/71 08/16/24 12:19 103 H 113/61 08/16/24 12:03 130 H 98/62 L 08/16/24 12:01 121 H 100/55 L 08/16/24 11:59 110 H 96/55 L 08/16/24 11:57 118 H 99/54 L 08/16/24 11:55 113 H 95/59 L 08/16/24 11:53 106 H 95/54 L 08/16/24 11:52 106 H 98 08/16/24 11:51 102 H 89/44 L 08/16/24 11:49 106 H 117/57 L 08/16/24 11:47 117 H 138/57 L 96 08/16/24 11:42 111 H 97 08/16/24 11:37 126 H 96 08/16/24 11:32 115 H 95 08/16/24 11:27 100 H 99 08/16/24 11:26 111 H 91 08/16/24 11:22 124 H 99 08/16/24 11:17 112 H 97 08/16/24 11:14 107 H 92 08/16/24 11:12 154 H 97 08/16/24 11:09 107 H 94 08/16/24 11:07 160 H 99 08/16/24 11:05 22 08/16/24 11:05 97.9 F 22 08/16/24 11:02 105 H 96 08/16/24 10:57 122 H 96 08/16/24 10:52 111 H 96 08/16/24 10:47 96 H 95 08/16/24 10:45 115 H 91 08/16/24 10:42 111 H 97 08/16/24 10:37 108 H 97 08/16/24 10:32 99 08/16/24 10:32 163 H 08/16/24 10:32 108 H 93 08/16/24 10:27 113 H 97 08/16/24 10:23 120 H 128/71 08/16/24 10:22 123 H 97 08/16/24 10:17 153 H 98 08/16/24 10:13 101 H 94 08/16/24 10:12 113 H 97 08/16/24 10:08 101 H 94 08/16/24 10:07 95 08/16/24 10:07 100 H 08/16/24 10:07 103 H 116/55 L 08/16/24 10:02 110 H 96 08/16/24 09:57 130 H 97 08/16/24 09:52 106 H 117/71 96 08/16/24 09:47 109 H 96 08/16/24 09:42 115 H 97 08/16/24 09:37 128 H 97 08/16/24 09:36 109 H 128/66 08/16/24 09:32 104 H 96 08/16/24 09:27 121 H 98 08/16/24 09:22 127 H 81 L 08/16/24 09:21 99 H 123/60 08/16/24 09:17 144 H 99 08/16/24 09:12 110 H 96 08/16/24 09:07 125 H 99 08/16/24 09:06 118 H 137/69 08/16/24 09:02 97.9 F 117 H 20 99 08/16/24 08:57 106 H 98 08/16/24 08:52 99 08/16/24 08:52 124 H 08/16/24 08:52 109 H 108/58 L 08/16/24 08:47 94 H 97 08/16/24 08:42 95 H 97 08/16/24 08:37 95 H 103/55 L 96 08/16/24 08:32 95 H 97 08/16/24 08:27 98 H 97 08/16/24 08:22 96 H 97 08/16/24 08:21 95 H 111/57 L 08/16/24 08:17 98 H 97 08/16/24 08:12 100 H 97 08/16/24 08:08 105 H 135/56 L 08/16/24 08:07 103 H 97 08/16/24 08:06 106 H 92 08/16/24 08:02 108 H 97 08/16/24 07:57 110 H 18 98 08/16/24 07:52 111 H 99 08/16/24 07:51 105 H 125/73 08/16/24 07:47 114 H 98 08/16/24 07:42 101 H 97 08/16/24 07:37 103 H 118/73 97 08/16/24 07:32 102 H 97 08/16/24 07:27 103 H 98 08/16/24 07:23 109 H 119/74 08/16/24 07:22 107 H 97 08/16/24 07:17 102 H 97 08/16/24 07:12 106 H 98 08/16/24 07:08 98.6 F 122 H 20 127/77 08/16/24 07:07 117 H 98 08/16/24 07:02 107 H 99 08/16/24 06:57 107 H 100 08/16/24 06:52 99 08/16/24 06:52 127 H 08/16/24 06:52 118 H 132/74 08/16/24 06:47 128 H 100 08/16/24 06:42 110 H 99 08/16/24 06:37 119 H 120/67 99 08/16/24 06:32 104 H 99 08/16/24 06:27 115 H 100 08/16/24 06:22 118 H 98 08/16/24 06:21 103 H 131/73 08/16/24 06:17 16 08/16/24 06:17 98.1 F 108 H 16 100 08/16/24 06:12 107 H 100 08/16/24 06:07 113 H 124/70 99 08/16/24 06:02 121 H 99 08/16/24 05:57 83 97 08/16/24 05:52 86 98 08/16/24 05:51 88 124/66 08/16/24 05:47 100 H 99 08/16/24 05:42 95 H 98 08/16/24 05:37 96 08/16/24 05:37 86 08/16/24 05:37 83 101/55 L 08/16/24 05:32 90 97 08/16/24 05:27 86 97 08/16/24 05:22 83 97 08/16/24 05:21 96 H 113/68 08/16/24 05:17 83 98 08/16/24 05:12 90 99 08/16/24 05:09 103 H 122/63 08/16/24 05:07 116 H 98 08/16/24 05:02 85 98 08/16/24 04:57 86 98 08/16/24 04:52 98.2 F 90 16 115/54 L 100 08/16/24 04:47 86 97 08/16/24 04:42 92 H 97 08/16/24 04:37 93 H 106/57 L 98 08/16/24 04:32 86 98 08/16/24 04:27 90 97 08/16/24 04:22 108 H 99 08/16/24 04:21 93 H 94/51 L 08/16/24 04:17 90 97 08/16/24 04:12 91 H 98 08/16/24 04:07 87 98 08/16/24 04:06 88 100/55 L 08/16/24 04:02 90 99 08/16/24 03:57 102 H 100 08/16/24 03:52 99 H 98 08/16/24 03:51 102 H 111/60 08/16/24 03:47 100 H 97 08/16/24 03:42 104 H 98 08/16/24 03:37 103 H 98 08/16/24 03:36 105 H 119/61 08/16/24 03:32 113 H 99 08/16/24 03:27 115 H 97 08/16/24 03:22 126 H 118/70 98 08/16/24 03:17 128 H 98 08/16/24 03:12 122 H 98 08/16/24 03:07 129 H 98 08/16/24 03:06 116 H 118/69 08/16/24 03:02 119 H 97 08/16/24 02:57 127 H 97 08/16/24 02:52 126 H 96 08/16/24 02:51 127 H 119/67 08/16/24 02:50 16 08/16/24 02:50 98.4 F 16 08/16/24 02:47 122 H 96 08/16/24 02:42 131 H 97 08/16/24 02:37 96 08/16/24 02:37 125 H 08/16/24 02:37 125 H 116/66 08/16/24 02:32 131 H 97 08/16/24 02:27 121 H 96 08/16/24 02:22 126 H 123/69 97 08/16/24 02:17 121 H 96 08/16/24 02:12 124 H 96 08/16/24 02:07 114 H 113/62 95 08/16/24 02:04 113 H 94 08/16/24 02:02 110 H 95 08/16/24 01:57 107 H 95 08/16/24 01:56 107 H 94 08/16/24 01:52 105 H 95 08/16/24 01:51 110 H 16 106/57 L 08/16/24 01:50 106 H 94 08/16/24 01:47 107 H 95 08/16/24 01:42 108 H 95 08/16/24 01:41 106 H 94 08/16/24 01:37 107 H 114/62 95 08/16/24 01:32 109 H 95 08/16/24 01:27 115 H 96 PG Care Time/CCT Total # of Minutes Spent Total Time Spent with Patient: Total time spent is greater than 50% in coordination of care (as documented) at patient's floor/unit and/or counseling patient: Coding Level of Care Code None Diagnoses hemorrhage O72.1
--- NOTE | 2024-08-16 14:13 | Operative Report ---
PG Post Operative Report Pre & Post Diagnosis Operation Date: 08/16/24 09:00 Pre-Op Diagnosis: Post hemmorrhage, retained placenta Post-Op Diagnosis: Post hemmorrhage, retained placenta I identified the patient and participated in the time-out.: Yes Procedure Operation Date: 08/16/24 09:00 Actual Procedures p Exam under anesthesia. curettage of uterus. exploration of uterus. placement of TANVIR device. Vale Lambert MD, FACOG Surgeon Vale Lambert MD, FACOG Cinder Man none Estimated Blood Loss 100 (90 on chux, 10 for case.) Findings Consistent with Post-Op Diagnosis (from transfer from to OR about 90cc blood on chux, with eua, few clots removed, no evidence of retained products curettage resulted in minimal tissue. TANVIR placed and balloon filled with 110cc of saline) Fluids 900cc NS Specimens none Drains tanvir gao Anesthesia Type General Complications none Disposition Accompanied Patient To Recovery: No Disposition: Recovery Room Indications 28yo with pph, retained tissue removed at bedside and recommended eua and further management of bleeding and pt agrees. Description of Procedure Patient taken to OR and when adequate general anesthesia was obtained, placed in dorsal lithotomy position. Betadine prep. EUA performed with findings as noted above. No tissue removed with manual or banjo curettage. TANVIR placed in routine fashion and on suction with minimal return. Balloon inflated 110cc and rechecked x 1 with no evidence of abnormal egress of bleeding. Fundus at umbilicus. Re approximated tissue at introitus with 3-0 vicryl. Watched for >10min with no evidence of worsening bleeding. 1u PRBC planned. Patient awoken from anesthesia to transfer to recovery room. Sponge, needle and lap counts correct x 2. I attest to the content of the Intraoperative Record and any orders documented therein. Any exceptions are noted below. OB Procedure Charges 32618 PP Curettage (TANVIR placement)
[2024-08-16] MEDS ORDERED: OXYTOCIN 20 UNITS/LR 1,002 ML IV SCH (14:45)
--- NOTE | 2024-08-16 14:53 | Anesthesiology Progress Note ---
Date of Service August 16, 2024 Anesthesia Post Procedure Vital Signs Vital Signs: Temp Pulse Pulse Resp BP BP Pulse Ox 08/16/24 14:47 36.9 C 101 H 13 125/74 96 08/16/24 14:40 109 H 15 114/83 95 08/16/24 14:35 108 H 20 121/76 98 08/16/24 14:25 116 H 16 128/83 100 08/16/24 14:19 37.7 C H 126 H 16 127/78 100 08/16/24 13:24 142 H 143/75 H 08/16/24 13:21 111 H 148/77 H 08/16/24 13:04 129 H 123/70 08/16/24 12:49 120 H 129/71 08/16/24 12:19 103 H 113/61 08/16/24 12:03 130 H 98/62 L 08/16/24 12:01 121 H 100/55 L 08/16/24 11:59 110 H 96/55 L 08/16/24 11:57 118 H 99/54 L 08/16/24 11:55 113 H 95/59 L 08/16/24 11:53 106 H 95/54 L 08/16/24 11:52 106 H 98 08/16/24 11:51 102 H 89/44 L 08/16/24 11:49 106 H 117/57 L 08/16/24 11:47 117 H 138/57 L 96 08/16/24 11:42 111 H 97 08/16/24 11:37 126 H 96 08/16/24 11:32 115 H 95 08/16/24 11:27 100 H 99 08/16/24 11:26 111 H 91 08/16/24 11:22 124 H 99 08/16/24 11:17 112 H 97 08/16/24 11:14 107 H 92 08/16/24 11:12 154 H 97 08/16/24 11:09 107 H 94 08/16/24 11:07 160 H 99 08/16/24 11:05 22 08/16/24 11:05 36.6 C 22 08/16/24 11:02 105 H 96 08/16/24 10:57 122 H 96 08/16/24 10:52 111 H 96 08/16/24 10:47 96 H 95 08/16/24 10:45 115 H 91 08/16/24 10:42 111 H 97 08/16/24 10:37 108 H 97 08/16/24 10:32 99 08/16/24 10:32 163 H 08/16/24 10:32 108 H 93 08/16/24 10:27 113 H 97 08/16/24 10:23 120 H 128/71 08/16/24 10:22 123 H 97 08/16/24 10:17 153 H 98 08/16/24 10:13 101 H 94 08/16/24 10:12 113 H 97 08/16/24 10:08 101 H 94 08/16/24 10:07 95 08/16/24 10:07 100 H 08/16/24 10:07 103 H 116/55 L 08/16/24 10:02 110 H 96 08/16/24 09:57 130 H 97 08/16/24 09:52 106 H 117/71 96 08/16/24 09:47 109 H 96 08/16/24 09:42 115 H 97 08/16/24 09:37 128 H 97 08/16/24 09:36 109 H 128/66 08/16/24 09:32 104 H 96 08/16/24 09:27 121 H 98 08/16/24 09:22 127 H 81 L 08/16/24 09:21 99 H 123/60 08/16/24 09:17 144 H 99 08/16/24 09:12 110 H 96 08/16/24 09:07 125 H 99 08/16/24 09:06 118 H 137/69 08/16/24 09:02 36.6 C 117 H 20 99 08/16/24 08:57 106 H 98 08/16/24 08:52 99 08/16/24 08:52 124 H 08/16/24 08:52 109 H 108/58 L 08/16/24 08:47 94 H 97 08/16/24 08:42 95 H 97 08/16/24 08:37 95 H 103/55 L 96 08/16/24 08:32 95 H 97 08/16/24 08:27 98 H 97 08/16/24 08:22 96 H 97 08/16/24 08:21 95 H 111/57 L 08/16/24 08:17 98 H 97 08/16/24 08:12 100 H 97 08/16/24 08:08 105 H 135/56 L 08/16/24 08:07 103 H 97 08/16/24 08:06 106 H 92 08/16/24 08:02 108 H 97 08/16/24 07:57 110 H 18 98 08/16/24 07:52 111 H 99 08/16/24 07:51 105 H 125/73 08/16/24 07:47 114 H 98 08/16/24 07:42 101 H 97 08/16/24 07:37 103 H 118/73 97 08/16/24 07:32 102 H 97 08/16/24 07:27 103 H 98 08/16/24 07:23 109 H 119/74 08/16/24 07:22 107 H 97 08/16/24 07:17 102 H 97 08/16/24 07:12 106 H 98 08/16/24 07:08 37.0 C 122 H 20 127/77 08/16/24 07:07 117 H 98 08/16/24 07:02 107 H 99 08/16/24 06:57 107 H 100 08/16/24 06:52 99 08/16/24 06:52 127 H 08/16/24 06:52 118 H 132/74 08/16/24 06:47 128 H 100 08/16/24 06:42 110 H 99 08/16/24 06:37 119 H 120/67 99 08/16/24 06:32 104 H 99 08/16/24 06:27 115 H 100 08/16/24 06:22 118 H 98 08/16/24 06:21 103 H 131/73 08/16/24 06:17 16 08/16/24 06:17 36.7 C 108 H 16 100 08/16/24 06:12 107 H 100 08/16/24 06:07 113 H 124/70 99 08/16/24 06:02 121 H 99 08/16/24 05:57 83 97 08/16/24 05:52 86 98 08/16/24 05:51 88 124/66 08/16/24 05:47 100 H 99 08/16/24 05:42 95 H 98 08/16/24 05:37 96 08/16/24 05:37 86 08/16/24 05:37 83 101/55 L 08/16/24 05:32 90 97 08/16/24 05:27 86 97 08/16/24 05:22 83 97 08/16/24 05:21 96 H 113/68 08/16/24 05:17 83 98 08/16/24 05:12 90 99 08/16/24 05:09 103 H 122/63 08/16/24 05:07 116 H 98 08/16/24 05:02 85 98 08/16/24 04:57 86 98 08/16/24 04:52 36.8 C 90 16 115/54 L 100 08/16/24 04:47 86 97 08/16/24 04:42 92 H 97 08/16/24 04:37 93 H 106/57 L 98 08/16/24 04:32 86 98 08/16/24 04:27 90 97 08/16/24 04:22 108 H 99 08/16/24 04:21 93 H 94/51 L 08/16/24 04:17 90 97 08/16/24 04:12 91 H 98 08/16/24 04:07 87 98 08/16/24 04:06 88 100/55 L 08/16/24 04:02 90 99 08/16/24 03:57 102 H 100 08/16/24 03:52 99 H 98 08/16/24 03:51 102 H 111/60 08/16/24 03:47 100 H 97 08/16/24 03:42 104 H 98 08/16/24 03:37 103 H 98 08/16/24 03:36 105 H 119/61 08/16/24 03:32 113 H 99 08/16/24 03:27 115 H 97 08/16/24 03:22 126 H 118/70 98 08/16/24 03:17 128 H 98 08/16/24 03:12 122 H 98 08/16/24 03:07 129 H 98 08/16/24 03:06 116 H 118/69 08/16/24 03:02 119 H 97 08/16/24 02:57 127 H 97 08/16/24 02:52 126 H 96 08/16/24 02:51 127 H 119/67 08/16/24 02:50 16 08/16/24 02:50 36.9 C 16 08/16/24 02:47 122 H 96 08/16/24 02:42 131 H 97 08/16/24 02:37 96 08/16/24 02:37 125 H 08/16/24 02:37 125 H 116/66 08/16/24 02:32 131 H 97 08/16/24 02:27 121 H 96 08/16/24 02:22 126 H 123/69 97 08/16/24 02:17 121 H 96 08/16/24 02:12 124 H 96 08/16/24 02:07 114 H 113/62 95 08/16/24 02:04 113 H 94 08/16/24 02:02 110 H 95 08/16/24 01:57 107 H 95 08/16/24 01:56 107 H 94 08/16/24 01:52 105 H 95 08/16/24 01:51 110 H 16 106/57 L 08/16/24 01:50 106 H 94 08/16/24 01:47 107 H 95 08/16/24 01:42 108 H 95 08/16/24 01:41 106 H 94 08/16/24 01:37 107 H 114/62 95 08/16/24 01:32 109 H 95 08/16/24 01:27 115 H 96 08/16/24 01:22 95 08/16/24 01:22 107 H 08/16/24 01:22 106 H 109/64 08/16/24 01:17 102 H 96 08/16/24 01:12 98 H 96 08/16/24 01:07 98 H 97 08/16/24 01:06 100 H 117/71 08/16/24 01:02 100 H 97 08/16/24 00:57 107 H 97 08/16/24 00:52 121 H 98 08/16/24 00:51 109 H 94 08/16/24 00:50 16 08/16/24 00:50 36.7 C 16 08/16/24 00:47 95 H 97 08/16/24 00:42 84 96 08/16/24 00:37 100 H 97 08/16/24 00:36 83 102/58 L 08/16/24 00:32 108 H 97 08/16/24 00:27 88 94 08/16/24 00:26 87 94 08/16/24 00:22 95 08/16/24 00:22 87 08/16/24 00:22 86 97/55 L 08/16/24 00:20 85 94 08/16/24 00:17 85 95 08/16/24 00:15 87 94 08/16/24 00:12 87 95 08/16/24 00:10 88 94 08/16/24 00:08 89 16 101/55 L 08/16/24 00:07 89 95 08/16/24 00:04 86 94 08/16/24 00:02 83 94 08/15/24 23:59 85 94 08/15/24 23:57 85 96 08/15/24 23:53 84 94 08/15/24 23:52 95 08/15/24 23:52 84 08/15/24 23:52 85 98/56 L 08/15/24 23:48 86 94 08/15/24 23:47 84 94 08/15/24 23:43 86 93 08/15/24 23:42 84 95 08/15/24 23:37 84 96 08/15/24 23:36 88 97/52 L 08/15/24 23:32 83 95 08/15/24 23:27 88 95 08/15/24 23:26 84 94 08/15/24 23:22 87 97 08/15/24 23:21 92 H 96/54 L 08/15/24 23:17 80 96 08/15/24 23:16 81 94 08/15/24 23:12 83 95 08/15/24 23:07 80 95 08/15/24 23:06 85 95/52 L 08/15/24 23:02 81 96 08/15/24 22:57 78 97 08/15/24 22:52 79 97 08/15/24 22:51 86 16 97/53 L 08/15/24 22:47 81 97 08/15/24 22:42 82 96 08/15/24 22:37 82 97 08/15/24 22:36 84 100/54 L 08/15/24 22:33 83 97/52 L 08/15/24 22:32 90 97 08/15/24 22:30 81 96/55 L 08/15/24 22:27 81 98/55 L 99 08/15/24 22:25 86 100/56 L 08/15/24 22:22 87 98 08/15/24 22:21 87 86/50 L 08/15/24 22:20 75 82/49 L 08/15/24 22:17 96 08/15/24 22:17 89 08/15/24 22:17 79 82/47 L 08/15/24 22:13 16 08/15/24 22:13 16 08/15/24 22:12 93 H 98 08/15/24 22:09 91 H 97/45 L 08/15/24 22:07 91 H 98 08/15/24 22:02 90 98 08/15/24 22:01 91 H 101/50 L 08/15/24 21:59 104 H 183/122 H 08/15/24 21:57 111 H 98 08/15/24 21:56 96 H 112/65 08/15/24 21:53 85 97/54 L 08/15/24 21:52 84 91/53 L 97 08/15/24 21:51 78 90/51 L 08/15/24 21:50 100 H 96/50 L 08/15/24 21:47 98 08/15/24 21:47 107 H 08/15/24 21:47 117 H 18 119/58 L 08/15/24 21:44 122 H 107/68 08/15/24 21:43 115 H 131/73 08/15/24 21:42 112 H 97 08/15/24 21:38 101 H 137/75 08/15/24 21:37 103 H 98 08/15/24 21:35 100 H 147/82 H 08/15/24 21:32 103 H 98 08/15/24 21:27 110 H 97 08/15/24 21:22 102 H 98 08/15/24 20:22 86 128/83 08/15/24 19:08 93 H 147/79 H 08/15/24 19:00 18 08/15/24 19:00 36.5 C 18 08/15/24 18:02 36.8 C 90 20 111/66 08/15/24 16:58 90 127/71 08/15/24 16:02 99 H 137/78 08/15/24 14:58 36.8 C 90 20 122/74 O2 Del Method O2 Flow Rate 08/16/24 14:47 Room Air 08/16/24 14:40 Room Air 08/16/24 14:35 Oxymask 3 08/16/24 14:25 Oxymask 7 08/16/24 14:19 Oxymask 7 08/16/24 13:24 08/16/24 13:21 08/16/24 13:04 08/16/24 12:49 08/16/24 12:19 08/16/24 12:03 08/16/24 12:01 08/16/24 11:59 08/16/24 11:57 08/16/24 11:55 08/16/24 11:53 08/16/24 11:52 08/16/24 11:51 08/16/24 11:49 08/16/24 11:47 08/16/24 11:42 08/16/24 11:37 08/16/24 11:32 08/16/24 11:27 08/16/24 11:26 08/16/24 11:22 08/16/24 11:17 08/16/24 11:14 08/16/24 11:12 08/16/24 11:09 08/16/24 11:07 08/16/24 11:05 08/16/24 11:05 08/16/24 11:02 08/16/24 10:57 08/16/24 10:52 08/16/24 10:47 08/16/24 10:45 08/16/24 10:42 08/16/24 10:37 08/16/24 10:32 08/16/24 10:32 08/16/24 10:32 08/16/24 10:27 08/16/24 10:23 08/16/24 10:22 08/16/24 10:17 08/16/24 10:13 08/16/24 10:12 08/16/24 10:08 08/16/24 10:07 08/16/24 10:07 08/16/24 10:07 08/16/24 10:02 08/16/24 09:57 08/16/24 09:52 08/16/24 09:47 08/16/24 09:42 08/16/24 09:37 08/16/24 09:36 08/16/24 09:32 08/16/24 09:27 08/16/24 09:22 08/16/24 09:21 08/16/24 09:17 08/16/24 09:12 08/16/24 09:07 08/16/24 09:06 08/16/24 09:02 08/16/24 08:57 08/16/24 08:52 08/16/24 08:52 08/16/24 08:52 08/16/24 08:47 08/16/24 08:42 08/16/24 08:37 08/16/24 08:32 08/16/24 08:27 08/16/24 08:22 08/16/24 08:21 08/16/24 08:17 08/16/24 08:12 08/16/24 08:08 08/16/24 08:07 08/16/24 08:06 08/16/24 08:02 08/16/24 07:57 08/16/24 07:52 08/16/24 07:51 08/16/24 07:47 08/16/24 07:42 08/16/24 07:37 08/16/24 07:32 08/16/24 07:27 08/16/24 07:23 08/16/24 07:22 08/16/24 07:17 08/16/24 07:12 08/16/24 07:08 08/16/24 07:07 08/16/24 07:02 08/16/24 06:57 08/16/24 06:52 08/16/24 06:52 08/16/24 06:52 08/16/24 06:47 08/16/24 06:42 08/16/24 06:37 08/16/24 06:32 08/16/24 06:27 08/16/24 06:22 08/16/24 06:21 08/16/24 06:17 08/16/24 06:17 08/16/24 06:12 08/16/24 06:07 08/16/24 06:02 08/16/24 05:57 08/16/24 05:52 08/16/24 05:51 08/16/24 05:47 08/16/24 05:42 08/16/24 05:37 08/16/24 05:37 08/16/24 05:37 08/16/24 05:32 08/16/24 05:27 08/16/24 05:22 08/16/24 05:21 08/16/24 05:17 08/16/24 05:12 08/16/24 05:09 08/16/24 05:07 08/16/24 05:02 08/16/24 04:57 08/16/24 04:52 08/16/24 04:47 08/16/24 04:42 08/16/24 04:37 08/16/24 04:32 08/16/24 04:27 08/16/24 04:22 08/16/24 04:21 08/16/24 04:17 08/16/24 04:12 08/16/24 04:07 08/16/24 04:06 08/16/24 04:02 08/16/24 03:57 08/16/24 03:52 08/16/24 03:51 08/16/24 03:47 08/16/24 03:42 08/16/24 03:37 08/16/24 03:36 08/16/24 03:32 08/16/24 03:27 08/16/24 03:22 08/16/24 03:17 08/16/24 03:12 08/16/24 03:07 08/16/24 03:06 08/16/24 03:02 08/16/24 02:57 08/16/24 02:52 08/16/24 02:51 08/16/24 02:50 08/16/24 02:50 08/16/24 02:47 08/16/24 02:42 08/16/24 02:37 08/16/24 02:37 08/16/24 02:37 08/16/24 02:32 08/16/24 02:27 08/16/24 02:22 08/16/24 02:17 08/16/24 02:12 08/16/24 02:07 08/16/24 02:04 08/16/24 02:02 08/16/24 01:57 08/16/24 01:56 08/16/24 01:52 08/16/24 01:51 08/16/24 01:50 08/16/24 01:47 08/16/24 01:42 08/16/24 01:41 08/16/24 01:37 08/16/24 01:32 08/16/24 01:27 08/16/24 01:22 08/16/24 01:22 08/16/24 01:22 08/16/24 01:17 08/16/24 01:12 08/16/24 01:07 08/16/24 01:06 08/16/24 01:02 08/16/24 00:57 08/16/24 00:52 08/16/24 00:51 08/16/24 00:50 08/16/24 00:50 08/16/24 00:47 08/16/24 00:42 08/16/24 00:37 08/16/24 00:36 08/16/24 00:32 08/16/24 00:27 08/16/24 00:26 08/16/24 00:22 08/16/24 00:22 08/16/24 00:22 08/16/24 00:20 08/16/24 00:17 08/16/24 00:15 08/16/24 00:12 08/16/24 00:10 08/16/24 00:08 08/16/24 00:07 08/16/24 00:04 08/16/24 00:02 08/15/24 23:59 08/15/24 23:57 08/15/24 23:53 08/15/24 23:52 08/15/24 23:52 08/15/24 23:52 08/15/24 23:48 08/15/24 23:47 08/15/24 23:43 08/15/24 23:42 08/15/24 23:37 08/15/24 23:36 08/15/24 23:32 08/15/24 23:27 08/15/24 23:26 08/15/24 23:22 08/15/24 23:21 08/15/24 23:17 08/15/24 23:16 08/15/24 23:12 08/15/24 23:07 08/15/24 23:06 08/15/24 23:02 08/15/24 22:57 08/15/24 22:52 08/15/24 22:51 08/15/24 22:47 08/15/24 22:42 08/15/24 22:37 08/15/24 22:36 08/15/24 22:33 08/15/24 22:32 08/15/24 22:30 08/15/24 22:27 08/15/24 22:25 08/15/24 22:22 08/15/24 22:21 08/15/24 22:20 08/15/24 22:17 08/15/24 22:17 08/15/24 22:17 08/15/24 22:13 08/15/24 22:13 08/15/24 22:12 08/15/24 22:09 08/15/24 22:07 08/15/24 22:02 08/15/24 22:01 08/15/24 21:59 08/15/24 21:57 08/15/24 21:56 08/15/24 21:53 08/15/24 21:52 08/15/24 21:51 08/15/24 21:50 08/15/24 21:47 08/15/24 21:47 08/15/24 21:47 08/15/24 21:44 08/15/24 21:43 08/15/24 21:42 08/15/24 21:38 08/15/24 21:37 08/15/24 21:35 08/15/24 21:32 08/15/24 21:27 08/15/24 21:22 08/15/24 20:22 08/15/24 19:08 08/15/24 19:00 08/15/24 19:00 08/15/24 18:02 08/15/24 16:58 08/15/24 16:02 08/15/24 14:58 Transfer of Care Handoff Completed per policy Notes Mental Status: alert / awake / arousable and participated in evaluation Patient Amnestic to Procedure: Yes Nausea / Vomiting: adequately controlled Pain: adequately controlled Airway Patency, RR, SpO2: stable & adequate BP & HR: stable & adequate Hydration State: stable & adequate Anesthetic Complications: no major complications apparent and Pt Satisfied with anesthetic care
[2024-08-16 15:03] LABS: Hemoglobin 10.9 g/dl (12.0-16.0)
[2024-08-16] MEDS: miSOPROStoL 200 MCG TAB PR ONE (15:12)
[2024-08-16 15:34] LABS: INR 0.9 (0.9-1.1); Partial Thromboplastin Ratio 1.1; Partial Thromboplastin Time 29 Seconds (21-31); Prothrombin Time 10.3 Seconds (9.0-12.0)
[2024-08-16] MEDS: miSOPROStoL 200 MCG TAB ONE (18:00)
--- NOTE | 2024-08-16 18:47 | Anesthesia Procedure Note ---
Date of Service August 16, 2024 Anesthesia Post Epidural Note Vital Signs Vital Signs: Temp Pulse Resp BP Pulse Ox O2 Del Method O2 Flow Rate 36.6 C 96 H 20 116/72 97 Room Air 3 08/16/24 15:08 08/16/24 18:43 08/16/24 15:08 08/16/24 18:37 08/16/24 18:43 08/16/24 14:50 08/16/24 14:35 Notes Mental Status: alert / awake / arousable and participated in evaluation Patient Amnestic to Procedure: No Nausea / Vomiting: adequately controlled Pain: adequately controlled Airway Patency, RR, SpO2: stable & adequate BP & HR: stable & adequate Hydration State: stable & adequate Neuraxial Anesthesia: was administered and sensory block resolved Anesthetic Complications: no major complications apparent and Pt Satisfied with anesthetic care Epidural: Removed without complications and With tip intact Notes: coags normal
[2024-08-16] MEDS: ACETAMINOPHEN 325 MG TAB PO PRN (20:31)
[2024-08-16] MEDS: DOCUSATE SODIUM 100 MG CAP PO SCH (20:31)
[2024-08-16] MEDS: BENZOCAINE 20% SPRY 85 APPLN/85 GM CAN EXT PRN (20:33)
[2024-08-17] MEDS ORDERED: ROPIVACAINE 0.5% PF 5 MG/ML 20 ML VIAL EPI PRN (00:10)
[2024-08-17] MEDS ORDERED: ePHEDrine sulfate 50 MG/ML AMP IV PRN (00:10)
[2024-08-17] MEDS ORDERED: fentANYL 2 MCG/ML BUPIVacaine 0.125%-NSS 100ML BAG EPI PRN (00:10)
[2024-08-17] MEDS ORDERED: SODIUM CHLORIDE 0.9% PF INJ 10 ML VIAL EPI STA (00:10)
[2024-08-17] MEDS ORDERED: diphenhydrAMINE 50 MG/ML VIAL IV PRN (00:10)
[2024-08-17] MEDS ORDERED: LIDOCAINE 2%/EPINEPHRINE 1:200,000 20 ML PF EPI STA (00:10)
[2024-08-17] MEDS ORDERED: fentaNYL citrate PF 100 MCG/2 ML VIAL EPI STA (00:10)
[2024-08-17] MEDS ORDERED: SODIUM CHLORIDE 0.9% PF INJ 10 ML VIAL EPI PRN (00:10)
[2024-08-17] MEDS ORDERED: BUPIVACAINE 0.25% PF 30 ML VIAL EPI STA (00:10)
[2024-08-17] MEDS ORDERED: LIDOCAINE 2% MPF LOCAL 5 ML VIAL EPI PRN (00:10)
[2024-08-17] MEDS ORDERED: NALBUPHINE HCL INJ 10 MG/ML AMP IV PRN (00:10)
[2024-08-17] MEDS ORDERED: ONDANSETRON INJ 2 MG/ML 2 ML VIAL IV PRN (00:10)
[2024-08-17] MEDS ORDERED: BUPIVACAINE 0.25% PF 30 ML VIAL EPI PRN (00:10)
[2024-08-17] MEDS ORDERED: fentaNYL citrate PF 100 MCG/2 ML VIAL EPI PRN (00:10)
[2024-08-17] MEDS ORDERED: NALOXONE HCL 1 MG in SODIUM CHLORIDE 0.9% 1,000 ML IV PRN (00:10)
[2024-08-17] MEDS ORDERED: NALOXONE HCL 0.4 MG/1 ML VIAL/CARP IV PRN (00:10)
--- NOTE | 2024-08-17 06:14 | Obstetrical Progress Note ---
Date of Service August 17, 2024 Assessment & Plan (1) hemorrhage: (2) Encounter for care and examination after delivery: Plan Cefazolin completed this morning. Pt recovery well. Encourage ambulation with assistance as needed Monitor H&H Pain medication as needed Encourage breast feeding, sap bw consultant as needed Anticipate DC to home on 08/18/24 Admission and Anticipated Discharge Date Admission Date: August 15, 2024 Supervising Physician Co-Signing Physician Notes Resident Physician Supervision Note: I was present with Dr. Benson during the history and exam. I discussed the case with the resident and agree with the findings and plan as documented in the note. Any exceptions or clarifications are listed here: stable doing well. feels well. eating, voiding, ambulating, bleeding minimal. hgb noted. routine care. breast feeding. Documented By: Vale Lambert MD, FACOG Subjective Pt is 28 yo post- day 1 s/p at 40w. was uncomplicated. Delivery required vacuum assistance. PPH requiring curettage and LISA. Ambulation:In room, bu feels legs are weak and shaky Voiding:voiding normally Passing gas: yes BM: no Diet tolerance:regular diet Lochia:small bloody, no clots Feeding type: currently formula, wants to try breast today Current pain level: 3-4 /10 improved with tylenol Resting comfortably this morning in NAD. Denies LEHMAN, CP, SOB, N/V/D, LE pain/swelling. Review of Systems Review of Systems: As per HPI Physical Exam Constitutional: WD/WN, vitals as above Respiratory: normal respiratory effort, lungs clear to auscultation Cardiovascular: RRR, no murmur, no edema Gastrointestinal (Abdomen): normal bowel sounds, soft, nontender, no hepatosplenomegaly Uterine fundus firm and 1 cm below umbilicus Neurologic: PERRL, EOMI, accommodation nl, no face palsy, no dysarthria Moving all 4 extremities on command Psychiatric: A+Ox3, euthymic affect Results & Data Vital Signs (Past 12 Hours) Vital Signs Temp Pulse Pulse Pulse Resp BP BP 08/17/24 03:25 36.5 C 112 H 18 126/79 08/16/24 23:18 36.7 C 94 H 18 99/66 L 08/16/24 20:35 36.9 C 100 H 18 113/69 08/16/24 19:33 95 H 121/79 08/16/24 19:04 36.9 C 18 08/16/24 19:03 98 H 110/69 08/16/24 18:57 20 08/16/24 18:48 99 H 08/16/24 18:43 96 H 08/16/24 18:38 108 H 08/16/24 18:37 100 H 116/72 08/16/24 18:33 100 H 08/16/24 18:28 108 H 08/16/24 18:23 98 H 08/16/24 18:18 89 08/16/24 18:13 96 H Pulse Ox O2 Del Method 08/17/24 03:25 100 Room Air 08/16/24 23:18 98 Room Air 08/16/24 20:35 98 Room Air 08/16/24 19:33 08/16/24 19:04 08/16/24 19:03 08/16/24 18:57 08/16/24 18:48 99 08/16/24 18:43 97 08/16/24 18:38 97 08/16/24 18:37 08/16/24 18:33 98 08/16/24 18:28 97 08/16/24 18:23 98 08/16/24 18:18 96 08/16/24 18:13 96 Resident Activity Tracking Resident Involvement: Resident Care Provided Care Provided: Adult Hospital Medicine
[2024-08-17 06:33] LABS: Hematocrit (blood only) 26.2 % (37.0-47.0); Hemoglobin 9.1 g/dl (12.0-16.0)
[2024-08-17] MEDS: IBUPROFEN 600 MG TAB PO PRN (08:39)
[2024-08-17] MEDS: PRENATAL VITAMIN 1 TAB PO SCH (08:39)
[2024-08-17] MEDS: MAGNESIUM OXIDE 400 MG TAB PO SCH (08:53)
[2024-08-17 20:00] VITALS: RESP 18; O2SAT 99
[2024-08-17] MEDS: bisacodyL 5 MG TABEC PO SCH (20:03)
--- NOTE | 2024-08-18 09:20 | Obstetrical Progress Note ---
Date of Service August 18, 2024 Patient doing well. Minimal bleeding, no extremity pain she has no calf tenderness she is tolerating a regular diet she is voiding well she has no depression Assessment & Plan (1) Encounter for care and examination after delivery: day 2 meets discharge criteria wishes to go home Physical Exam Constitutional WD/WN, vitals as above well developed and well nourished Respiratory normal respiratory effort, lungs clear to auscultation normal respiratory effort Cardiovascular RRR, no murmur, no edema Gastrointestinal (Abdomen) normal bowel sounds, soft, nontender, no hepatosplenomegaly Results & Data Vital Signs (Past 12 Hours) Vital Signs Temp Pulse Resp BP Pulse Ox O2 Del Method 08/17/24 23:10 97.7 F 88 18 127/75 99 Room Air
[2024-08-18 09:31] VITALS: BP 109/73; PULSE 90; TEMP 97.5
--- NOTE | 2024-08-19 18:47 | Discharge Summary ---
Date of Service August 19, 2024 Admission HPI Per Admitting Provider Shireen is a 28 y/o female currently at 40WGA with an NEGRITO 08/13/24 as determined by Ultrasound who is here for induction for post dates. Her has not been complicated. no contractions; hourly movement; no fluid loss; no bloody show External FHT and external uterine monitors used. Had regular appointments with OB. OB Labs: Blood Type A Positive 12/29/23 Antibody Screen NEGATIVE 12/29/23 Hgb 11.7 g/dl (12.0-16.0) L 05/20/24 Hct 35.0 % (37.0-47.0) L 05/20/24 MCV 91.8 fL (80.0-100.0) 12/29/23 Plt Count 268 K/uL (130-400) 12/29/23 Rubella IgG Antibody Immune (Immune) 12/29/23 RPR Nonreactive (Nonreactive) 12/29/23 Treponema pallidum Ab Negative (Negative) 05/20/24 Hep Bs Antigen NON-REACTIVE (NON-REACTIVE) 12/29/23 Hepatitis C Ab (EIA) NON-REACTIVE (NON-REACTIVE) 12/29/23 HIV (1&2) Ag & Ab Conf NON-REACTIVE (NON-REACTIVE) 12/29/23 Glucose 1 Hr 50 gm 119 mg/dl (70-130) 05/20/24 OB Optional Labs: Chlamydia trachomatis RNA Not Detected (NotDetected) 12/29/23 Neisseria gonorrhoeae RNA Not Detected (NotDetected) 12/29/23 Labs Reviewed: Declines genetics--mln gbs neg--akh Denies fever, chills, sweats Denies shortness of breath, difficulty breathing, chest pain, palpitations, chest pressure. Denies breast pain. Denies dysuria. Denies headache or changes in vision. Discharge Data Procedures Performed Operation Date: 08/16/24 09:00 Actual Procedures p Exam under anesthesia, curettage of uterus, exploration of uterus, placement of LISA device - Vale Lambert MD, [facility] Hospital Course (1) Encounter for care and examination after delivery: Plan Patient underwent labor course and did have pitocin augmentation and epidural anesthesia. She requested assistance due to maternal exhaustion and vacuum assistance given. Her delivery was other noble complicated by manual extraction of placenta due to lack of detachment and heavy bleeding. QBL [id number]. Her po stpartum recovery was then normal until heavy vaginal bleeding QBL [id number] noted and bedside exam took place with removal of retained placenta. She was taken to operating room for more thorough eua with no further retained products noted but did have LISA system placed. After appropriate use of this device, it was discontinued and bleeding remained stable. She did receive 1u prbc in OR. Her postevent hgb was 9.1. She was discharged to home pp day #2. Coding Level of Care Code None Diagnoses Encounter for care and examination after delivery Z39.2
--- NOTE | 2024-08-20 13:16 | Coding Query ---
ANEMIA To promote full compliance with coding requirements relating to patient care, physician participation is requested in all cases of pastoral ministries professor uncertainty. Please assist us with the question(s) below: Coding Question(s): The record reflects the following clinical findings: 2,000 CC BLOOD LOSS in 08/16 progress note. Operative report for PPH mentioned 1UPC . Please check below, if applicable - the diagnosis that was treated . Thanks for your help! EWELINA Morales CCS If these findings are indicative of anemia, please specify the known or suspected type by placing an "X" within the parenthesis (x). If other, please document type. Examples are: ( ) Acute blood loss anemia ( ) Acute Postoperative blood loss anemia ( ) Acute postoperative anemia due to dilutional fluids ( ) Chronic blood loss anemia ( ) Anemia of chronic disease ( ) Aplastic anemia ( ) Anemia due to renal disease ( ) Anemia in neoplastic disease ( ) Iron deficient anemia ( ) Anemia, unspecified or other (X ) Other: (please specify) Please contact the physician who was caring for the patient at that time and who documented that 08/16 progress note. Thank you. CYRUS
--- NOTE | 2024-08-21 12:45 | Coding Query ---
ANEMIA To promote full compliance with coding requirements relating to patient care, physician participation is requested in all cases of strategic account director uncertainty. Please assist us with the question(s) below: Coding Question(s): The record reflects the following clinical findings:Your 08/16 progress note stated 2,000 cc blood loss. Pt with PPH. 1 UPC given intraoperatively. Please check below, if applicable, the diagnosis that was treated during this inpatient stay. Thank you. Henry Pitts , DIMENSIONAL INTEGRATION ENGINEER CCS If these findings are indicative of anemia, please specify the known or suspected type by placing an "X" within the parenthesis (x). If other, please document type. Examples are: ( ) Acute blood loss anemia ( ) Acute Postoperative blood loss anemia ( ) Acute postoperative anemia due to dilutional fluids ( ) Chronic blood loss anemia ( ) Anemia of chronic disease ( ) Aplastic anemia ( ) Anemia due to renal disease ( ) Anemia in neoplastic disease ( ) Iron deficient anemia ( ) Anemia, unspecified or other (x ) Other: (please specify) hemorrhage, anemia MTDD
== END 2024-08-18 12:30 | disposition home or self-care (01) | DRG 768 ==
LOC: 4S1 07:22 → 4E2 08-16 20:13